=== PATIENT | female | born 1985 | race Caucasian/White ===

== ENCOUNTER 2017-09-02 12:23 | Emergency (ER) | payer BC ==
--- NOTE | 2017-09-02 14:19 | UC ---
Back Pain HPI - HPI Summary HPI Summary: Pt presents with upper and mid back pain for the last 2 weeks. She tells me that she works at a [employer] and is often lifting and moving heavy objects. She strains her back often, but it usually improves - but this time she has not been able to rest due to an increased work schedule. She has been taking ibuprofen with mild relief. Denies fever, chills, recent illness, cough, radiation of pain, numbness, tingling, or loss of bowel/bladder function. - History of Current Complaint Chief Complaint: UCBackPain Stated Complaint: BACK PAIN Time Seen by Provider: 09/02/17 14:18 Hx Obtained From: Patient Hx Last Menstrual Period: 08/06/17 Onset/Duration: Gradual Onset Timing: Constant Severity Initially: Moderate Severity Currently: Moderate Pain Intensity: 5 Pain Scale Used: 0-10 Numeric Character: Aching, Stiffness Aggravating Factor(s): Movement, Lifting, Bending Alleviating Factor(s): Rest - Allergies/Home Medications Allergies/Adverse Reactions: Allergies Allergy/AdvReac Type Severity Reaction Status Date / Time hydrocodone Allergy Rash And Verified 09/02/17 13:09 Itching miconazole [From Monistat 3] Allergy Rash And Verified 09/02/17 13:09 Itching skin cleanser combination Allergy Rash And Verified 09/02/17 13:09 no.17 Itching [From Monistat 3] Home Medications: Home Medications Acetaminophen [Tylophen] 2 tab PO ONCE PRN 09/02/17 [History Confirmed 09/02/17] Multivitamin [Multivitamins] 1 tab PO DAILY 09/02/17 [History Confirmed 09/02/17 ] PMH/Surg Hx/FS Hx/Imm Hx Previously Healthy: Yes - Surgical History Surgical History: None - Family History Known Family History: Positive: Unknown - Social History Occupation: Employed Full-time Lives: With Family Alcohol Use: None Substance Use Type: None Smoking Status (MU): Never Smoked Tobacco Review of Systems Constitutional: Negative Skin: Negative Respiratory: Negative Cardiovascular: Negative Gastrointestinal: Negative Neurovascular: Negative Musculoskeletal: Other: - Neck and mid back pain Neurological: Negative Psychological: Negative All Other Systems Reviewed And Are Negative: Yes Physical Exam Triage Information Reviewed: Yes Appearance: Well-Appearing, No Pain Distress, Well-Nourished Vital Signs: Initial Vital Signs Temp 99.5 F 09/02/17 13:10 Pulse 72 09/02/17 13:10 Resp 16 09/02/17 13:10 BP 110/60 09/02/17 13:10 Pulse Ox 100 09/02/17 13:10 Vital Signs Reviewed: Yes Neck: Positive: Supple, No Lymphadenopathy, Other: - FROM. NTTP Respiratory: Positive: Lungs clear, Normal breath sounds, No respiratory distress, No accessory muscle use Cardiovascular: Positive: RRR, No Murmur, Pulses Normal Abdomen Description: Positive: Nontender, No Organomegaly, Soft. Negative: CVA Tenderness (R), CVA Tenderness (L), Distended, Guarding Bowel Sounds: Positive: Present Musculoskeletal: Positive: Strength Intact - B/L UEs and LEs, ROM Intact - B/L UEs and LEs, No Edema, Other: - TTP over paraspinal muscles of upper back - trapezius. No vertebral tenderness. Neurological: Positive: Alert, Other: - Sensations intact b/l UEs and LEs. Psychological: Positive: Age Appropriate Behavior Skin: Negative: rashes Back Pain Course/Dx - Course Course Of Treatment: Suspect muscle strain/spasm. Toradol IM given today. Meloxicam and flexeril prn - Differential Dx/Diagnosis Provider Diagnoses: Upper back spasm Discharge - Discharge Plan Condition: Stable Disposition: HOME Prescriptions: Cyclobenzaprine TAB* [Flexeril 10 MG TAB*] 10 mg PO BEDTIME PRN #10 tab PRN Reason: Pain Meloxicam 7.5 mg PO 14 PRN #14 tablet PRN Reason: Pain Patient Education Materials: Muscle Strain (DC) Forms: *Work Release Referrals: No Primary Care Phys,NOPCP [Primary Care Provider] - Additional Instructions: If you develop a fever, shortness of breath, chest pain, new or worsening symptoms - please call your PCP or go to the ED.
[2017-09-02] MEDS ORDERED: Ketorolac INJ* 30 MG/ML 1 ML VIAL IM ONE (14:28)
== END 2017-09-02 14:57 | disposition home or self-care (01) ==
LOC: UCEAST 12:23
DX: M62.830 Muscle spasm of back (principal); M54.6 Pain in thoracic spine; M54.2 Cervicalgia; Z88.5 Allergy status to narcotic agent
CPT/HCPCS: 99202; G0463; J1885

== ENCOUNTER 2019-05-24 11:04 | Emergency (ER) | payer SELFPAY ==
[2019-05-24 13:54] VITALS: BP 124/84
--- NOTE | 2019-05-24 15:45 | ED ---
GI/ HPI - HPI Summary HPI Summary: Patient is a 33-year-old female who presents emergency department for Right vaginal area times several days. Patient states she has a history of bartholin gland cyst and abscess. Patient states she sees a specialist at [facility]. Patient states they recommend she have glands removed the patient does not want to have the procedure. Patient states she has had them drained in the past by gynecology. Pt. states she called her GLUE LINE OPERATOR today but states that specialist had no availability this week. Patient states usually area opens and drains on its own. Patient states area has become more swollen. She has been doing warm soaks. Otherwise denies fever, chills, abdominal pain. Symptoms are mild in severity. No significant past medical history otherwise. - History of Current Complaint Chief Complaint: EDUrogenitalProblems Time Seen by Provider: 05/24/19 13:21 Stated Complaint: BARTHOLIN CYST PER PT Hx Obtained From: Patient Hx Last Menstrual Period: 08/06/17 Pain Intensity: 2 - Allergy/Home Medications Allergies/Adverse Reactions: Allergies Allergy/AdvReac Type Severity Reaction Status Date / Time hydrocodone Allergy Rash And Verified 05/24/19 11:13 Itching miconazole [From Monistat 3] Allergy Rash And Verified 05/24/19 11:13 Itching skin cleanser combination Allergy Rash And Verified 05/24/19 11:13 no.17 Itching [From Monistat 3] PMH/Surg Hx/FS Hx/Imm Hx Previously Healthy: Yes Respiratory History: Reports: Hx Asthma Infectious Disease History: No Infectious Disease History: Denies: Traveled Outside the [place] in Last 30 Days - Family History Known Family History: Positive: Unknown, Non-Contributory - Social History Occupation: Employed Full-time Lives: With Family Alcohol Use: None Substance Use Type: Reports: None Smoking Status (MU): Never Smoked Tobacco Review of Systems Constitutional: Negative Negative: Fever, Chills Gastrointestinal: Negative Positive: other - right sided vaginal swelling and pain. All Other Systems Reviewed And Are Negative: Yes Physical Exam Triage Information Reviewed: Yes Vital Signs On Initial Exam: Initial Vitals Temp Pulse Resp BP Pulse Ox 99.2 F 80 16 118/87 100 05/24/19 11:10 05/24/19 11:10 05/24/19 11:10 05/24/19 11:10 05/24/19 11:10 Vital Signs Reviewed: Yes Appearance: Positive: Well-Appearing - Pt. sitting up in bed in NAD. Skin: Positive: Warm, Dry Head/Face: Positive: Normal Head/Face Inspection Eyes: Positive: Normal, EOMI Neck: Positive: Supple Pelvic Exam: Positive: Other - Exam performed with female general service technicianMiranda. Edema and pain noted over right bartholin gland region. No definite area of fluctuance. No drainage. No overlying erythema or warmth. Neurological: Positive: Normal, CN Intact II-III Psychiatric: Positive: Affect/Mood Appropriate Procedures - Sedation Patient Received Moderate/Deep Sedation with Procedure: No Diagnostics - Vital Signs Vital Signs Temp Pulse Resp BP Pulse Ox 05/24/19 13:53 99.0 F 74 16 124/84 100 05/24/19 11:10 99.2 F 80 16 118/87 100 - Laboratory Lab Statement: Any lab studies that have been ordered have been reviewed, and results considered in the medical decision making process. GIGU Course/Dx - Course Course Of Treatment: Pt. with enlargement and pain to right batholin gland. Discussed with pt. there is no obvious abscess to drain that I can see on exam and that procedure should be done by GLUE LINE OPERATOR. Pt. agreeable to antibx and continue warm soaks. To call her [facility] consultant today for an apt. Motrin for pain as directed. To return to er ifs xs change or worsen. Pt. understands and agrees with plan. - Diagnoses Provider Diagnoses: Bartholin gland cyst Discharge ED - Sign-Out/Discharge Documenting (check all that apply): Patient Departure - Discharge Plan Condition: Good Disposition: HOME Prescriptions: Clindamycin Cap(NF) [Clindamycin Cap 300 mg Cap(NF)] 300 mg PO Q6H #40 cap Patient Education Materials: Bartholin Cyst (ED) Forms: *Work Release Referrals: Ceferino Hunt MD [Medical Doctor] - Additional Instructions: Please call your GLUE LINE OPERATOR today for an appointment as soon as possible Antibiotic as directed Continue warm compresses as directed Return to ER for fever, vomiting, increased pain/swelling - Billing Disposition and Condition Condition: GOOD Disposition: Home
== END 2019-05-24 13:49 | disposition home or self-care (01) ==
LOC: ED 11:04
DX: N75.0 Cyst of Bartholin's gland (principal); Z88.5 Allergy status to narcotic agent; Z88.8 Allergy status to other drugs, medicaments and biological substances
CPT/HCPCS: 99282

== ENCOUNTER 2019-05-26 22:28 | Emergency (ER) | payer SELFPAY ==
[2019-05-27] MEDS ORDERED: Bupivacaine 0.5% PF 10 ML SDV VIAL INJ ONE (00:50)
--- NOTE | 2019-05-27 00:50 | ED ---
GI/ HPI - HPI Summary HPI Summary: 33 year old F presenting to [facility] complains of worsening right labia pain and swelling with associated fever 99.9F and chills since several days ago. Hx Bartholin cysts. Patient states she was seen on Friday05/24/19 for her sx. The patient rates the pain 8/10 in severity. Symptoms aggravated by nothing. Symptoms alleviated by nothing. Patient states she has tried using heat and soaking with no relief. States she does not have a financial services specialist. - History of Current Complaint Chief Complaint: EDRashSkinAbscess Time Seen by Provider: 05/27/19 00:42 Stated Complaint: CYST PER PT Hx Obtained From: Patient Onset/Duration: Started Days Ago, Still Present Timing: Constant Current Severity: Moderate - 8/10 Pain Intensity: 8 Associated Signs and Symptoms: Positive: Fever, Chills Aggravating Factor(s): Nothing Alleviating Factor(s): Nothing - Allergy/Home Medications Allergies/Adverse Reactions: Allergies Allergy/AdvReac Type Severity Reaction Status Date / Time hydrocodone Allergy Rash And Verified 05/26/19 22:33 Itching miconazole [From Monistat 3] Allergy Rash And Verified 05/26/19 22:33 Itching skin cleanser combination Allergy Rash And Verified 05/26/19 22:33 no.17 Itching [From Monistat 3] PMH/Surg Hx/FS Hx/Imm Hx Previously Healthy: No - Bartholin cysts Respiratory History: Reports: Hx Asthma - Surgical History Surgical History: None Infectious Disease History: No Infectious Disease History: Denies: Traveled Outside the [place] in Last 30 Days - Family History Known Family History: Negative: Diabetes - Social History Alcohol Use: None Substance Use Type: Reports: None Smoking Status (MU): Never Smoked Tobacco Review of Systems Positive: Fever, Chills Positive: other - right labia pain and swelling All Other Systems Reviewed And Are Negative: Yes Physical Exam - Summary Physical Exam Summary: Appearance: Well-appearing, Well-nourished, lying in bed comfortable Skin: Warm, dry, no obvious rash Eyes: sclera anicteric, no conjunctival pallor ENT: mucous membranes moist Neck: deferred Respiratory: No signs of respiratory distress Cardiovascular: Appears well perfused, pulses are nml Abdomen: deferred exam chaperoned by hospital aide Alisha: she has marked swelling of the right labia consistent with Bartholin cyst abscess Musculoskeletal: Moving all 4 extremities without obvious discomfort Neurological: Awake and alert, mentation is normal, speech is fluent and appropriate Psychiatric: affect is normal, does not appear anxious or depressed Triage Information Reviewed: Yes Vital Signs On Initial Exam: Initial Vitals Temp Pulse Resp BP Pulse Ox 99.6 F 90 18 125/88 100 05/26/19 22:30 05/26/19 22:30 05/26/19 22:30 05/26/19 22:30 05/26/19 22:30 Vital Signs Reviewed: Yes Procedures - Sedation Patient Received Moderate/Deep Sedation with Procedure: No - Incision and Drainage Buttocks Site: right labia Anesthesia: Other - 0.5% bupivacaine Instrument(s): Other - 11 blade Diagnostics - Vital Signs Vital Signs Temp Pulse Resp BP Pulse Ox 05/26/19 22:30 99.6 F 90 18 125/88 100 - Laboratory Lab Statement: Any lab studies that have been ordered have been reviewed, and results considered in the medical decision making process. GIGU Course/Dx - Course Course Of Treatment: 33 year old F complains of worsening right labia pain and swelling with associated fever and chills since several days ago. Hx Bartholin cysts. Physical exam findings: She has marked swelling of the right labia consistent with Bartholin cyst abscess. 0.5% bupivacaine was applied to the right labia abscess. The patient's right labia abscess was drained using an 11 blade revealing a large amount of pus. Patient will be discharged home with follow up from her primary care providder as soon as possible. Patient was instructed to return to Emergency Department for new or worsening symptoms. Patient understands and is agreeable to this plan. - Diagnoses Provider Diagnoses: Bartholin cyst, Abscess Discharge ED - Sign-Out/Discharge Documenting (check all that apply): Patient Departure - Discharge - Discharge Plan Condition: Good Disposition: HOME Patient Education Materials: Bartholin Cyst (ED), Incision and Drainage (ED) Forms: *Work Release Referrals: Ceferino Hunt MD [Medical Doctor] - As Soon As Possible - Billing Disposition and Condition Condition: GOOD Disposition: Home - Attestation Statements Document Initiated by Scribe: Yes Documenting Scribe: Sarah Vela Provider For Whom Scribe is Documenting (Include Credential): Robert Reyes MD Scribe Attestation: Sarah Christianson scribed for Robert Reyes MD on 05/27/19 at 0511. Scribe Documentation Reviewed: Yes Provider Attestation: The documentation as recorded by the scribe, Sarah Vela accurately reflects the service I personally performed and the decisions made by me, Robert Reyes MD Status of Scribbala Document: Viewed
[2019-05-27] MEDS: Bupivacaine 0.5% SDV PF* 30ML VIAL INJ ONE ×2 (01:00→01:05)
[2019-05-27 01:31] VITALS: BP 127/73
[2019-05-27 03:21] LABS: HIV 4th Generation Nonreactive (Nonreactive)
== END 2019-05-27 01:29 | disposition home or self-care (01) ==
LOC: ED 22:28
DX: N75.0 Cyst of Bartholin's gland (principal); N76.4 Abscess of vulva; Z88.5 Allergy status to narcotic agent; Z88.8 Allergy status to other drugs, medicaments and biological substances
CPT/HCPCS: 36415; 56420; 87389; 99282; J3490

== ENCOUNTER 2020-03-22 15:25 | Inpatient (IN) ==
[2020-03-22] MEDS ORDERED: Magnesium Sulfate OB PREMIX 40 GM/1,000 ML BAG ONE (15:39)
[2020-03-22] MEDS ORDERED: MAGNESIUM SULF IVPB ONE (15:39)
[2020-03-22] MEDS ORDERED: Lactated Ringers 1000 ml BAG 1,000 ML IV ONE (15:41)
[2020-03-22] MEDS ORDERED: Magnesium Sulf 4 GM/100 ML IV 4,000 MG/100 ML BAG IVPB ONE (15:41)
[2020-03-22] MEDS ORDERED: hydrALAZINE 20 mg/ml 1 ML Vial IV IV SLOW PU PRN ×3 (15:45→17:05)
[2020-03-22] MEDS ORDERED: Lactated Ringers 1000 ml BAG 1,000 ML IV SCH (16:00)
[2020-03-22] MEDS ORDERED: Magnesium Sulfate OB PREMIX 40 GM/1,000 ML BAG IVPB SCH (16:00)
[2020-03-22 16:04] LABS: ABS Basophils 0.1 10^3/ul (0-0.2); ABS Eosinophils 0.1 10^3/ul (0-0.6); ABS Monocytes 1.1 10^3/ul (0-0.8); ABS Neutrophils 11.9 10^3/ul (1.5-7.7); Eosinophil % 0.4 %; Hematocrit 38 % (35-47); Hemoglobin 13.4 g/dL (12.0-16.0); Mean Corpuscular HGB Conc 35 g/dL (31-36); Mean Corpuscular Hemoglobin 32 pg (27-31); Mean Corpuscular Volume 90 fL (80-97); Mean Platelet Volume 8.8 fL (7.4-10.4); Platelet Count 210 10^3/uL (150-450); Red Blood Count 4.23 10^6 /uL (3.70-4.87); Red Cell Distribution Width 13 % (10-15); White Blood Count 15.1 10^3/uL (3.5-10.8)
[2020-03-22 16:09] LABS: Urine Appearance Clear; Urine Bilirubin Negative (Negative); Urine Blood 1+ (Negative); Urine Color Straw; Urine Glucose Negative (Negative); Urine Ketones Negative (Negative); Urine Nitrite Negative (Negative); Urine Protein 3+(>=500 mg/dL) (Negative); Urine Specific Gravity 1.007 (1.010-1.030); Urine Urobilinogen Negative (Negative)
[2020-03-22 16:14] LABS: Urine Bacteria Absent (Absent); Urine Red Blood Cell Absent (Absent); Urine Squamous Epithelial Cell Present (Absent); Urine White Blood Cell Absent (Absent)
[2020-03-22 16:18] LABS: Albumin 3.3 g/dL (3.2-5.2); Albumin/Globulin Ratio 1.4 (1-3); BUN/Creatinine Ratio 13.9 (8-20); Calcium 9.1 mg/dL (8.6-10.3); EGFR African American 113.6 (>60); EGFR Non-African American 93.9 (>60); Globulin 2.4 g/dL (2-4); Potassium 3.7 mmol/L (3.5-5.0); Total Bilirubin 0.3 mg/dL (0.2-1.0); Total Protein 5.7 g/dL (6.4-8.9); Uric Acid 5.3 mg/dL (2.3-6.6)
[2020-03-22 16:19] LABS: Urine Benzodiazepine Screen None Detected (None Detect); Urine Cannabinoids Screen None Detected (None Detect); Urine Opiates Screen None Detected (None Detect)
[2020-03-22] MEDS ORDERED: Betamethasone 6 mg/ml 5 ml VIAL IM ONE (16:28)
[2020-03-22] MEDS ORDERED: hydrALAZINE 20 mg/ml 1 ML Vial IV ONE (17:07)
== END 2020-03-22 18:35 | disposition short-term general hospital (02) | DRG 566 ==
LOC: MCHOBOUT 15:25 → MCHOB 15:42
PROVIDERS: ADMIT Obstetrics & Gynecology; ATTEND Obstetrics & Gynecology